=== PATIENT | male | born 1985 ===

== ENCOUNTER 2019-07-01 21:23 | Emergency (ER) | payer BC, SELFPAY ==
--- NOTE | ~2019-07-01 | XR_ITS ---
EXAMINATION: XR chest 2V 07/01/2019 23:20 INDICATION: Left-sided chest pain PROCEDURE: 2 view chest COMPARISON: No prior studies for comparison. FINDINGS: The lungs are clear. The cardiomediastinal silhouette is within normal limits. There are no pleural effusions. There is no pneumothorax suspected. IMPRESSION: 1: NO ACUTE CARDIOPULMONARY DISEASE. Reviewed, dictated and finalized at location A.
[2019-07-01 21:27] VITALS: BP 141/62; PULSE 94; RESP 18; TEMP 36.6; O2SAT 100
--- NOTE | 2019-07-01 22:51 | ECG_ITS ---
Measurements Intervals [place] Rate: 75 P: 54 CT: 135 QRS: 28 QRSD: 95 T: 30 QT: 363 QTc: 406 Interpretive Statements SINUS RHYTHM POSSIBLE LEFT ATRIAL ENLARGEMENT DELAYED PRECORDIAL R/S TRANSITION BORDERLINE ECG Electronically Signed On 07-02-2019 7:00:34 CDT by Bryan Davis D.O.
--- NOTE | 2019-07-01 22:53 | ED.CHESTPAIN ---
HPI - Chest Pain General Chief Complaint: Chest Pain Stated Complaint: panic attack Time Seen by Provider: 07/01/19 22:17 Source: patient Mode of arrival: ambulatory Limitations: no limitations History of Present Illness HPI narrative: Patient is a 34-year-old male presents to the emergency department with complaint of chest pain that he thinks could be due to a panic attack. Patient had edible marijuana around 1600 this evening. Patient reports onset of symptoms a couple of hours later. He describes tightness in the left chest with pain and tingling down his left arm and pain into his back and up into his neck and jaw. Patient reports feeling short of breath and having to remember to take breaths. He does report a fair amount of stress recently and feeling anxious. He states he has a history of anxiety but has never had a panic attack before. Patient denies any nausea, vomiting, or diaphoresis. Patient denies any heart history in his immediate family. He does report his grandfather had a heart attack. complaint: chest pain Onset (ago): hour(s) Timing of current episode: now resolved Onset: during rest Pain location: left chest Pain radiation: left arm, back and neck Quality: tightness Relieving factors: nothing Exacerbating factors: stress Context: other (Stress, marijuana ingestion) Risk Factors Coronary artery disease risk factors: none Related Data Allergies Allergy/AdvReac Type Severity Reaction Status Date / Time Penicillins Allergy Unknown pt unsure Verified 02/27/17 21:20 of reaction shrimp Allergy Unknown itchy Verified 02/27/17 21:20 throat Review of Systems Review of Systems: All systems reviewed & are unremarkable except as noted in HPI and below Respiratory: Respiratory: Reports dyspnea Gastrointestinal: Gastrointestinal: Denies nausea and Denies vomiting PMF Past Medical History Medical History (Updated 07/02/19 @ 02:24 by Judy Thrasher MD) Anxiety Surgical History Surgical History (Updated 07/01/19 @ 22:57 by Judy Thrasher MD) History of cystoscopy Family History Family History (Updated 12/29/17 @ 15:13 by DOCTOR UNKNOWN) Other Family history of alcoholism Social History Social History (Updated 07/01/19 @ 22:57 by Judy Thrasher MD) Smoking status: Never smoker Alcohol intake: current Substance use type: marijuana Gender identity (if verbalized by the patient): Male Exam Const: General: cooperative, no acute distress and alert Nutritional Appearance: well nourished Orientation/consciousness: patient oriented x3 Limitations: no limitations HENMT: Mouth: Yes lip normal and Yes moist mucous membranes Chest: Chest palpation & inspection: normal inspection of the chest and no tenderness Resp: Effort & Inspection: normal respiratory effort Auscultation: clear to auscultation bilaterally Cardio: Rate: regular rate Rhythm: regular rhythm GI: GI Palp: Yes Soft to palpation and No Tenderness to palpation present (GI) Auscultation: normal bowel sounds Skin: General skin exam: normal color Neuro: General: patient oriented x3 Cognition (Neuro): normal cognition Speech: normal speech Extrem: General: normal to inspection, full ROM and no clubbing, cyanosis or edema Psych: Mental Status: mental status grossly normal Affect: normal affect Attitude: cooperative Course Course Emergency Course: Patient low risk for heart disease with a low heart risk score and negative troponin x2. Advised follow-up with his primary care physician for further evaluation. Patient remains asymptomatic on reevaluation. Vital Signs Vital signs: Vital Signs Temperature 97.8 F 07/01/19 21:27 Pulse Rate 94 07/01/19 21:27 Respiratory Rate 18 07/01/19 21:27 Blood Pressure 141/62 H 07/01/19 21:27 Pulse Oximetry 100 07/01/19 21:27 Temperature 97.8 F 07/01/19 21:27 Pulse Rate 72 07/02/19 01:52 Respiratory Rate 18 07/02/19
[2019-07-01 23:13] LABS: Basophils Absolute Auto 0.1 K/mm3 (0.0-0.1); Basophils Percent Auto 0.6 % (0.2-1.2); Eosinophils Absolute Auto 0.2 K/mm3 (0-0.3); Eosinophils Percent Auto 2.4 % (0-4.4); Hemoglobin 15.4 g/dL (14.0-18.0); Immature Granulocyte Absolute 0.02 K/mm3 (0.00-0.031); Immature Granulocyte Percent A 0.2 % (0-0.5); Lymphocytes Absolute Auto 2.68 K/mm3 (0.9-3.2); Lymphocytes Percent Auto 32.6 % (18.3-44.2); Mean Corpuscular HGB Conc 34.2 g/dl (32-36); Mean Corpuscular Hemoglobin 28.6 pg (26-34); Mean Corpuscular Volume 83.6 fl (80-100); Mean Platelet Volume 10.4 fl (7.4-10.4); Monocytes Absolute Auto 0.6 K/mm3 (0.1-0.6); Monocytes Percent Auto 7.6 % (2.6-8.5); Neutrophils Absolute Auto 4.6 K/mm3 (1.3-6.7); Neutrophils Percent Auto 56.6 % (45.5-73.1); Platelet Count Result 295 k/mm3 (150-375); Red Blood Count 5.38 M/mm3 (4.6-6.20); White Blood Count 8.2 K/mm3 (4.5-10.0)
[2019-07-01 23:22] LABS: INR 0.9; Prothrombin Time 12.3 Seconds (11.1-14.7)
[2019-07-01 23:23] LABS: Partial Thromboplastin Time 25.1 SECONDS (22.3-36.8)
[2019-07-01 23:29] LABS: Alanine Aminotransferase 28 U/L (4-50); Albumin Level 4.6 g/dL (3.5-5.1); Alkaline Phosphatase 77 U/L (38-126); Aspartate Amino Transferase 33 U/L (17-59); Bilirubin,Total 0.4 mg/dL (0.2-1.3); Blood Urea Nitrogen 11 mg/dL (9-20); Carbon Dioxide 29 mmol/L (22-30); Chloride 100 mmol/L (98-107); Estimated Glomerular Filt Rate > 60; Glucose 117 mg/dL (75-110); Potassium 3.5 mmol/L (3.4-5.0); Sodium 137 mmol/L (137-145)
[2019-07-01 23:32] VITALS: BP 110/71; PULSE 80; RESP 18; O2SAT 100
[2019-07-01 23:38] LABS: D Dimer < 0.22 ug/mL (<0.48)
[2019-07-01 23:41] LABS: Troponin I < 0.012 ng/mL (0.000-0.034)
[2019-07-02 01:52] VITALS: BP 94/72; PULSE 72; RESP 18; O2SAT 98
[2019-07-02 02:08] LABS: Troponin I < 0.012 ng/mL (0.000-0.034)
[2019-07-02 02:30] VITALS: BP 122/82; PULSE 74; RESP 18; O2SAT 98
== END 2019-07-02 02:31 | disposition home or self-care (01) ==
PROVIDERS: Emergency Provider Emergency Medicine; PCP Family Medicine
DX: R07.9 Chest pain, unspecified (principal); R94.31 Abnormal electrocardiogram [ECG] [EKG]
CPT/HCPCS: 36415; 71046; 80053; 84484; 85025; 85380; 85610; 85730; 93005; 99284

== ENCOUNTER 2019-12-27 07:48 | Outpatient (NON) | payer BC, SELFPAY ==
[2019-12-28 18:20] LABS: SARS-CoV-2 RNA PCR Negative
== END 2019-12-27 07:49 ==
LOC: ANHCOVIDDT 07:50
PROVIDERS: PCP Family Medicine; Visit Provider Physician Assistant Medical
DX: Z20.828 Contact with and (suspected) exposure to other viral communicable diseases (principal)
CPT/HCPCS: 87635; C9803; U0003